=== PATIENT | female | born 1990 | race Caucasian/White ===

== ENCOUNTER 2019-05-20 14:13 | Emergency (ER) | payer SELFPAY ==
--- NOTE | 2019-05-20 14:24 | ED.GENADULT ---
HPI - General Adult General Chief complaint: Upper Respiratory Infection Stated complaint: Congestion Time Seen by Provider: 05/20/19 14:39 Source: patient Mode of arrival: ambulatory Limitations: no limitations History of Present Illness HPI narrative: 29-year-old female patient presents to the [facility] with complaints of cold symptoms that started yesterday. Denies any fevers that she is aware of. Patient states she has had some hot and cold chills. Patient denies any body aches. Patient states she has had a little bit of a stuffy nose, runny nose along with a cough. Denies any ear pain, chest pain, shortness of breath, abdominal pain, nausea, vomiting or diarrhea. Patient denies getting a flu shot this year. Patient denies any or breast-feeding. Patient denies taking anything for her symptoms since they started. Related Data Home Medications Medication Instructions Recorded Confirmed No Home Medications 05/20/19 05/20/19 Allergies Allergy/AdvReac Type Severity Reaction Status Date / Time No Known Allergies Allergy Verified 05/20/19 14:38 Review of Systems Review of Systems: Narrative: CONSTITUTIONAL: Denies fever, positive chills, and sweats. EYES: Denies visual changes, redness, or discharge. ENT: Positive rhinorrhea, congestion, sore throat, denies otalgia. CARDIOVASCULAR: Denies chest pain, palpitations, or edema. RESPIRATORY: Positive cough, denies dyspnea. GASTROINTESTINAL: Denies abdominal pain, nausea, vomiting, or diarrhea. GENITOURINARY: Denies dysuria or hematuria. SKIN: Denies rash or itching. MUSCULOSKELETAL: Denies back pain, joint pain, or myalgia. NEUROLOGIC: Denies headache, numbness, or weakness. PSYCHIATRIC: Denies anxiety or depression. PMFSH Comments At the time of my signature I agree with nursing past medical history, surgical, social, and family history. There is no relevant family history pertinent to the presenting complaint. Exam Narrative: Exam Narrative: GENERAL: Well-appearing, well-nourished, and in no acute distress. HEAD: Normocephalic, atraumatic. No tenderness noted to frontal and maxillary sinuses on palpation. EYES: PERRLA and EOMI. ENT: Nares with erythema and edema noted bilaterally, patent, no rhinorrhea or epistaxis. Mucous membranes moist. Posterior pharynx with no erythema, tonsil enlargement, exudates or lesions present. Bilateral TMs are clear with no erythema or foreign bodies in the canal. NECK: Supple. No lymphadenopathy CHEST: Clear to auscultation. No respiratory distress. HEART: Regular rate and rhythm. No murmur heard. Normal peripheral pulses. ABDOMEN: Soft, nontender, nondistended, normal active bowel sounds. EXTREMITIES: Normal range of motion. No edema. SKIN: Warm, dry, no rash. NEURO: No focal deficits. Alert and oriented x3. Course Reevaluation(s) Reevaluation #1: Notify patient that she is negative today for strep and flu. Discussed with her that this is some type of virus will take some time to run its course and she can take Tylenol, ibuprofen, and symptomatic relief including over the counter antihistamines, hot tea and honey, warm salt water gargles for symptoms. Discussed with patient if she has worsening symptoms which is high fevers, chest pain or shortness of breath and she would need to go the ER for further evaluation and treatment. Patient verbalized understanding denies any other questions or concerns. Date: 05/20/19 Time: 14:57 Vital Signs Vital signs: Vital Signs Temperature 36.8 C 05/20/19 14:32 Pulse Rate 91 05/20/19 14:32 Respiratory Rate 14 05/20/19 14:32 Blood Pressure 130/79 05/20/19 14:32 Pulse Oximetry 100 05/20/19 14:32 Temperature 36.8 C 05/20/19 14:32 Pulse Rate 91 05/20/19 14:32 Respiratory Rate 14 05/20/19 14:32 Blood Pressure 130/79 05/20/19 14:32 Pulse Oximetry 100 05/20/19 14:32 Vital signs reviewed. Medical Decision Making Differential Diagnosis Differenti
[2019-05-20 14:32] VITALS: BP 130/79; PULSE 91; RESP 14; TEMP 36.8; O2SAT 100
== END 2019-05-20 15:00 | disposition home or self-care (01) ==
PROVIDERS: Emergency Provider Nurse Practitioner Family
DX: J06.9 Acute upper respiratory infection, unspecified (principal); R05 Cough
CPT/HCPCS: 87081; 87804; 87880; 99213; G0463